=== PATIENT | male | born 1985 | race Caucasian/White ===

== ENCOUNTER 2018-07-31 12:11 | Inpatient (IN) | payer BC ==
[~2018-07-31] VITALS: Ht 185.4 cm; Wt 99.8 kg
--- NOTE | 2018-07-31 12:28 | PHYS DOC ---
Past Medical History Past Medical History: No Pertinent History Additional Past Medical Histor: seasonal allergies Past Surgical History: No Surgical History Alcohol Use: None Drug Use: None Adult General Chief Complaint Chief Complaint: CHEST PAIN HPI HPI Patient is a 33 year old male who presents with left-sided chest pain that lasted approximately 30 minutes. It started approximately an hour ago. Patient was concerned enough to call 911 and was brought in by EMS. He received 324 mg of aspirin by EMS. During EMS transport his chest pain migrated from superior to his nipple down to his left upper quadrant of the abdomen. Patient reports some nausea, no diaphoresis, a mild cough. He denies any PE risk factors. Denies any recent fever. While the pain was in his chest he denies any radiation of the pain. Reports that the pain was at worst a 2 or 3 out of 10, it is currently a 1 or 2 out of 10. Describes the pain as a pressure sensation. There was no worsening pain with exertion nor respirophasic component. Pain was worse with a seated upright position. Review of Systems Review of Systems Constitutional: Denies fever or chills [] Eyes: Denies change in visual acuity, redness, or eye pain [] HENT: Denies nasal congestion or sore throat [] Respiratory: Denies cough or shortness of breath [] Cardiovascular: No additional information not addressed in HPI [] GI: Denies abdominal pain, nausea, vomiting, bloody stools or diarrhea [] : Denies dysuria or hematuria . Reports history of testicular swelling, a hernia, that is reducible. It has had to be reduced almost daily for the past 2 years.[] Musculoskeletal: Denies back pain or joint pain [] Integument: Denies rash or skin lesions [] Neurologic: Denies headache, focal weakness or sensory changes [] Endocrine: Denies polyuria or polydipsia [] All other systems were reviewed and found to be within normal limits, except as documented in this note. Current Medications Current Medications Current Medications Medications (Trade) Dose Ordered Sig/Shiva Start Time Stop Time Status Last Admin Dose Admin Ketorolac Tromethamine (Toradol 15mg Vial) 15 mg 1X ONCE 07/31/18 12:45 07/31/18 12:46 DC 07/31/18 12:41 15 MG Allergies Allergies Allergies Coded Allergies Type Severity Reaction Last Updated Verified penicillin Allergy Severe SOB 05/13/15 Yes Penicillins Allergy Intermediate 11/02/15 Yes Physical Exam Physical Exam Constitutional: Well developed, well nourished, no acute distress, non-toxic appearance. [] HENT: Normocephalic, atraumatic, bilateral external ears normal, oropharynx moist, no oral exudates, nose normal. [] Eyes: PERRLA, EOMI, conjunctiva normal, no discharge. [] Neck: Normal range of motion, no tenderness, supple, no stridor. [] Cardiovascular:Heart rate regular rhythm, no murmur []no chest tenderness. No paradoxical motion with breathing. Lungs & Thorax: Bilateral breath sounds clear to auscultation [] Abdomen: Bowel sounds normal, soft, no tenderness, no masses, no pulsatile masses. [] No rebound, no guarding, no rigidity. : normal male, bilateral descended testes, +freely reduceable hernia. Skin: Warm, dry, no erythema, no rash. [] Back: No tenderness, no CVA tenderness. [] Extremities: No tenderness, no cyanosis, no clubbing, ROM intact, no edema. [] Neurologic: Alert and oriented X 3, normal motor function, normal sensory function, no focal deficits noted. [] Psychologic: Affect normal, judgement normal, mood normal. [] Current Patient Data Vital Signs Vital Signs Date Time Temp Pulse Resp B/P (MAP) Pulse Ox O2 Delivery O2 Flow Rate FiO2 07/31/18 16:06 113 20 139/80 (99) 99 07/31/18 12:11 97.7 Room Air 97.7 Lab Values Laboratory Tests Test 07/31/18 12:20 07/31/18 15:20 White Blood Count 5.7 x10^3/uL (4.0-11.0) Red Blood Count 4.81 x10^6/uL (4.30-5.70) Hemoglobin 15.6 g/dL (13.0-17.5) Hematocrit 44.6 % (39.0-53.0) Mean Corpuscular Volume 93 fL (79-100) Mean Corpuscular Hemoglobin 32 pg (25-35) Mean Corpuscular Hemoglobin Concent 35 g/dL (31-37) Red Cell Distribution Width 12.5 % (11.5-14.5) Platelet Count 194 x10^3/uL (140-400) Neutrophils (%) (Auto) 57 % (31-73) Lymphocytes (%) (Auto) 34 % (24-48) Monocytes (%) (Auto) 7 % (0-9) Eosinophils (%) (Auto) 3 % (0-3) Basophils (%) (Auto) 0 % (0-3) Neutrophils # (Auto) 3.3 x10^3uL (1.8-7.7) Lymphocytes # (Auto) 1.9 x10^3/uL (1.0-4.8) Monocytes # (Auto) 0.4 x10^3/uL (0.0-1.1) Eosinophils # (Auto) 0.1 x10^3/uL (0.0-0.7) Basophils # (Auto) 0.0 x10^3/uL (0.0-0.2) Prothrombin Time 12.9 SEC (11.7-14.0) Prothrombin Time INR 1.0 (0.8-1.1) D-Dimer ([place]) 0.27 ug/mlFEU (0.00-0.50) Sodium Level 141 mmol/L (136-145) Potassium Level 3.9 mmol/L (3.5-5.1) Chloride Level 105 mmol/L (98-107) Carbon Dioxide Level 26 mmol/L (21-32) Anion Gap 10 (6-14) Blood Urea Nitrogen 15 mg/dL (8-26) Creatinine 0.8 mg/dL (0.7-1.3) Estimated GFR (Cockcroft-Gault) 110.0 BUN/Creatinine Ratio 19 (6-20) Glucose Level 107 mg/dL (70-99) H Calcium Level 8.9 mg/dL (8.5-10.1) Magnesium Level 1.8 mg/dL (1.8-2.4) Total Bilirubin 0.4 mg/dL (0.2-1.0) Aspartate Amino Transferase (AST) 17 U/L (15-37) Alanine Aminotransferase (ALT) 30 U/L (16-63) Alkaline Phosphatase 74 U/L (46-116) Troponin I Quantitative < 0.017 ng/mL (0.000-0.055) < 0.017 ng/mL (0.000-0.055) Total Protein 7.5 g/dL (6.4-8.2) Albumin 3.8 g/dL (3.4-5.0) Albumin/Globulin Ratio 1.0 (1.0-1.7) Lipase 85 U/L (73-393) Laboratory Tests 07/31/18 12:20 Laboratory Tests 07/31/18 12:20 EKG EKG EKG shows a normal sinus rhythm at 91 bpm normal axis, normal QTC, no ST elevations, nonspecific ST and T-wave changes that show no acute changes when compared with previous EKG from 2016.[] Radiology/Procedures Radiology/Procedures Chest x-ray showed no acute features Testicular ultrasound showed small hydrocele on the right side however otherwise normal testicular sonogram[] Course & Med Decision Making Course & Med Decision Making Pertinent Labs and Imaging studies reviewed. (See chart for details) ED course: Patient arrived, was placed in bed, and tolerated exam well. Patient is achieved pain relief with the IV ketorolac. Discussion was made with Dr. Barnes at [facility], who agreed to admit. Due to the hernia history, Dr. Cm from surgery was consulted as well. Medical decision making: This does not appear to be an acute coronary syndrome, no evidence of testicular torsion, no evidence of pulmonary embolism, pneumothorax, nor pneumonia.[] Dragon Disclaimer Dragon Disclaimer This electronic medical record was generated, in whole or in part, using a voice recognition dictation system. Departure Departure Impression: Primary Impression: Chest pain Additional Impression: Inguinal hernia Disposition: ADMITTED INPATIENT Admitting Physician: Other Condition: STABLE Problem Qualifiers Primary Impression: Chest pain Chest pain type: unspecified Qualified Codes: R07.9 - Chest pain, unspecified Additional Impression: Inguinal hernia Obstruction and gangrene presence: without obstruction or gangrene Laterality : unspecified laterality Recurrence: recurrent Qualified Codes: K40.91 - Unilateral inguinal hernia, without obstruction or gangrene, recurrent STARR MORRIS DO Jul 31, 2018 12:28
[2018-07-31 12:33] LABS: BASO % 0 % (0-3); EOS # 0.1 x10^3/uL (0.0-0.7); EOS % 3 % (0-3); HEMATOCRIT 44.6 % (39.0-53.0); HEMOGLOBIN 15.6 g/dL (13.0-17.5); LYMPH # 1.9 x10^3/uL (1.0-4.8); LYMPH % 34 % (24-48); MEAN CORPUSCULAR HEMOGLOBIN 32 pg (25-35); MEAN CORPUSCULAR HGB CONC 35 g/dL (31-37); MEAN CORPUSCULAR VOLUME 93 fL (79-100); MONO # 0.4 x10^3/uL (0.0-1.1); MONO % 7 % (0-9); NEUT # 3.3 x10^3uL (1.8-7.7); NEUT % 57 % (31-73); PLATELET COUNT 194 x10^3/uL (140-400); RED BLOOD COUNT 4.81 x10^6/uL (4.30-5.70); RED CELL DISTRIBUTION WIDTH 12.5 % (11.5-14.5); WHITE BLOOD COUNT 5.7 x10^3/uL (4.0-11.0)
[2018-07-31 12:44] LABS: CALCIUM 8.9 mg/dL (8.5-10.1); CREATININE 0.8 mg/dL (0.7-1.3); POTASSIUM 3.9 mmol/L (3.5-5.1)
[2018-07-31 12:45] LABS: PROTHROMBIN TIME PATIENT 12.9 SEC (11.7-14.0)
[2018-07-31] MEDS ORDERED: KETOROLAC 15 MG/ML VIAL. IV ONE (12:45)
--- NOTE | 2018-07-31 12:47 | EKG ---
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
[2018-07-31 12:50] LABS: D-DIMER 0.27 ug/mlFEU (0.00-0.50)
[2018-07-31 12:51] LABS: ALBUMIN 3.8 g/dL (3.4-5.0); MAGNESIUM 1.8 mg/dL (1.8-2.4); TOTAL BILIRUBIN 0.4 mg/dL (0.2-1.0); TOTAL PROTEIN 7.5 g/dL (6.4-8.2)
--- NOTE | 2018-07-31 12:58 | RAD ---
PORTABLE CHEST 1V dated 07/31/2018 12:35 PM. Comparison: None. Clinical Indication: LEFT SIDED CHEST PAIN X THIS MORNING. Findings: Single upright portable exam performed. Heart and mediastinal contours are within normal limits. Lungs are clear without focal consolidation. Vascular interstitium within normal limits. No pleural effusion or pneumothorax. Impression: Negative portable chest. Electronically signed by: Clark Gallegos MD (07/31/2018 12:55 PM) [id number]
--- NOTE | 2018-07-31 14:14 | RAD ---
Testicular duplex sonogram Clinical indications: Scrotal pain. History of testicular cancer. FINDINGS: Duplex sonography of the scrotum and both testicles was performed including grayscale evaluation and color flow and waveform spectral analysis. The longitudinal AP and transverse dimensions of the right testicle are 5.5 cm and 2.7 cm and 2.6 cm respectively. The longitudinal and AP and transverse dimensions of the left testicle are 5.0 cm and 2.7 cm and 2.9 cm respectively. Both testicles are homogeneous without mass. Symmetric color Doppler flow is seen within the testicles and therefore no testicular torsion is evident. Small hydrocele is on the right side. The epididymis on both sides is normal. The patient indicated inguinal hernia on the right side but no obvious hernia is seen with Valsalva maneuvers. This may further evaluated with CT imaging of the pelvis if clinically needed. IMPRESSION: Normal testicular sonogram. Small hydrocele on the right side. Electronically signed by: Jayme Escobar MD (07/31/2018 2:11 PM) [facility]
--- NOTE | 2018-07-31 14:32 | PDOC2 ---
CONSULT Date of Consult Date of Consult DATE: 07/31/18 TIME: 14:28 History of Present Illness Reason for Visit: The patient is a 33 year old male who presents with his Sister and Mother to the ER due to chest pain. In addition he has had a known sizeable left inguinal hernia for nearly 2 years. He states it has enlarged and often needs to be manually reduced. Previously it had not been symptomatic, however over the last day he notes worsening pain. Past Medical History Past Medical History denies Past Surgical History Past Surgical History denies Social History No Current Medications Current Medications Current Medications Ketorolac Tromethamine (Toradol 15mg Vial) 15 mg 1X ONCE IV Last administered on 07/31/18at 12:41; Start 07/31/18 at 12:45; Stop 07/31/18 at 12:46; Status DC Allergies Allergies: Coded Allergies: penicillin (Verified Allergy, Severe, SOB, 05/13/15) Penicillins (Verified Allergy, Intermediate, 11/02/15) ROS PSYCHOLOGICAL ROS: No: Anxiety, Behavioral Disorder, Concentration difficultie , Decreased libido, Depression, Disorientation, Hallucinations, Hostility, Irritablity, Memory difficulties, Mood Swings, Obsessive thoughts, Physical abuse, Sexual abuse, Sleep disturbances, Suicidal ideation, Other Eyes: No Blurry vision, No Decreased vision, No Double vision, No Dry eyes, No Excessive tearing, No Eye Pain, No Itchy Eyes, No Loss of vision, No Photophobia , No Scotomata, No Uses contacts, No Uses glasses, No Other ALLERGY AND IMMUNOLOGY: No: Hives, Insect Bite Sensitivity, Itchy/Watery Eyes, Nasal Congestion, Post Nasal Drip, Seasonal Allergies, Other Breast: No New/Changing Breast Lumps, No Nipple changes, No Nipple discharge, No Other Respiratory: No: Cough, Hemoptysis, Orthopnea, Pleuritic Pain, Shortness of breath, SOB with excertion, Sputum Changes, Stridor, Tachypnea, Wheezing, Other Cardiovascular: yes Chest Pain Genitourinary: No Dysuria, No Frequency, No Incontinence, No Hematuria, No Retention, No Discharge, No Urgency, No Pain, No Flank Pain, No Other, No , No , No , No , No , No , No Musculoskeletal: No Gait Disturbance, No Joint Pain, No Joint Stiffness, No Joint Swelling, No Muscle Pain, No Muscular Weakness, No Pain In:, No Swelling In:, No Other Neurological: No Behavorial Changes, No Bowel/Bladder ControlChng, No Confusion , No Dizziness, No Gait Disturbance, No Headaches, No Impaired Coord/balance, No Memory Loss, No Numbness/Tingling, No Seizures, No Speech Problems, No Tremors, No Visual Changes, No Weakness, No Other Skin: No Dry Skin, No Eczema, No Hair Changes, No Lumps, No Mole Changes, No Mottling, No Nail Changes, No Pruritus, No Rash, No Skin Lesion Changes, No Other, No Acne Physical Exam General: Alert, Oriented X3, Cooperative HEENT: Atraumatic Lungs: Clear to auscultation Heart: Regular rate Abdomen: Soft, No tenderness, Other (mod to large reducible left inguinal hernia present) Extremities: No clubbing Skin: No rashes, No breakdown Neuro: Normal speech, Strength at 5/5 X4 ext Psych/Mental Status: Mental status NL MUSCULOSKELETAL: No joint tenderness, No deformity Vitals VITALS Vital Signs Date Time Temp Pulse Resp B/P (MAP) Pulse Ox O2 Delivery O2 Flow Rate FiO2 07/31/18 13:55 82 18 129/84 (99) 98 07/31/18 12:11 97.7 Room Air 97.7 Labs Labs Laboratory Tests Test 07/31/18 12:20 White Blood Count 5.7 x10^3/uL (4.0-11.0) Red Blood Count 4.81 x10^6/uL (4.30-5.70) Hemoglobin 15.6 g/dL (13.0-17.5) Hematocrit 44.6 % (39.0-53.0) Mean Corpuscular Volume 93 fL (79-100) Mean Corpuscular Hemoglobin 32 pg (25-35) Mean Corpuscular Hemoglobin Concent 35 g/dL (31-37) Red Cell Distribution Width 12.5 % (11.5-14.5) Platelet Count 194 x10^3/uL (140-400) Neutrophils (%) (Auto) 57 % (31-73) Lymphocytes (%) (Auto) 34 % (24-48) Monocytes (%) (Auto) 7 % (0-9) Eosinophils (%) (Auto) 3 % (0-3) Basophils (%) (Auto) 0 % (0-3) Neutrophils # (Auto) 3.3 x10^3uL (1.8-7.7) Lymphocytes # (Auto) 1.9 x10^3/uL (1.0-4.8) Monocytes # (Auto) 0.4 x10^3/uL (0.0-1.1) Eosinophils # (Auto) 0.1 x10^3/uL (0.0-0.7) Basophils # (Auto) 0.0 x10^3/uL (0.0-0.2) Prothrombin Time 12.9 SEC (11.7-14.0) Prothromb Time International Ratio 1.0 (0.8-1.1) D-Dimer ([place]) 0.27 ug/mlFEU (0.00-0.50) Sodium Level 141 mmol/L (136-145) Potassium Level 3.9 mmol/L (3.5-5.1) Chloride Level 105 mmol/L (98-107) Carbon Dioxide Level 26 mmol/L (21-32) Anion Gap 10 (6-14) Blood Urea Nitrogen 15 mg/dL (8-26) Creatinine 0.8 mg/dL (0.7-1.3) Estimated GFR (Cockcroft-Gault) 110.0 BUN/Creatinine Ratio 19 (6-20) Glucose Level 107 mg/dL (70-99) Calcium Level 8.9 mg/dL (8.5-10.1) Magnesium Level 1.8 mg/dL (1.8-2.4) Total Bilirubin 0.4 mg/dL (0.2-1.0) Aspartate Amino Transf (AST/SGOT) 17 U/L (15-37) Alanine Aminotransferase (ALT/SGPT) 30 U/L (16-63) Alkaline Phosphatase 74 U/L (46-116) Troponin I Quantitative < 0.017 ng/mL (0.000-0.055) Total Protein 7.5 g/dL (6.4-8.2) Albumin 3.8 g/dL (3.4-5.0) Albumin/Globulin Ratio 1.0 (1.0-1.7) Lipase 85 U/L (73-393) Laboratory Tests Test 07/31/18 12:20 White Blood Count 5.7 x10^3/uL (4.0-11.0) Red Blood Count 4.81 x10^6/uL (4.30-5.70) Hemoglobin 15.6 g/dL (13.0-17.5) Hematocrit 44.6 % (39.0-53.0) Mean Corpuscular Volume 93 fL (79-100) Mean Corpuscular Hemoglobin 32 pg (25-35) Mean Corpuscular Hemoglobin Concent 35 g/dL (31-37) Red Cell Distribution Width 12.5 % (11.5-14.5) Platelet Count 194 x10^3/uL (140-400) Neutrophils (%) (Auto) 57 % (31-73) Lymphocytes (%) (Auto) 34 % (24-48) Monocytes (%) (Auto) 7 % (0-9) Eosinophils (%) (Auto) 3 % (0-3) Basophils (%) (Auto) 0 % (0-3) Neutrophils # (Auto) 3.3 x10^3uL (1.8-7.7) Lymphocytes # (Auto) 1.9 x10^3/uL (1.0-4.8) Monocytes # (Auto) 0.4 x10^3/uL (0.0-1.1) Eosinophils # (Auto) 0.1 x10^3/uL (0.0-0.7) Basophils # (Auto) 0.0 x10^3/uL (0.0-0.2) Prothrombin Time 12.9 SEC (11.7-14.0) Prothromb Time International Ratio 1.0 (0.8-1.1) D-Dimer ([place]) 0.27 ug/mlFEU (0.00-0.50) Sodium Level 141 mmol/L (136-145) Potassium Level 3.9 mmol/L (3.5-5.1) Chloride Level 105 mmol/L (98-107) Carbon Dioxide Level 26 mmol/L (21-32) Anion Gap 10 (6-14) Blood Urea Nitrogen 15 mg/dL (8-26) Creatinine 0.8 mg/dL (0.7-1.3) Estimated GFR (Cockcroft-Gault) 110.0 BUN/Creatinine Ratio 19 (6-20) Glucose Level 107 mg/dL (70-99) Calcium Level 8.9 mg/dL (8.5-10.1) Magnesium Level 1.8 mg/dL (1.8-2.4) Total Bilirubin 0.4 mg/dL (0.2-1.0) Aspartate Amino Transf (AST/SGOT) 17 U/L (15-37) Alanine Aminotransferase (ALT/SGPT) 30 U/L (16-63) Alkaline Phosphatase 74 U/L (46-116) Troponin I Quantitative < 0.017 ng/mL (0.000-0.055) Total Protein 7.5 g/dL (6.4-8.2) Albumin 3.8 g/dL (3.4-5.0) Albumin/Globulin Ratio 1.0 (1.0-1.7) Lipase 85 U/L (73-393) Assessment/Plan Assessment/Plan 33 year old male with left inguinal hernia, chest pain. Dr Barnes with cardiology has been notified regarding the eval for chest pain, and he will be seeing the patient soon. Pending the cardiac evaluation, surgical repair of the hernia could be as early as tomorrow if cleared. Thanks for the consult!! LARRY WANG MD Jul 31, 2018 14:32
[2018-07-31] MEDS ORDERED: ONDANSETRON PF 4 MG/2 ML VIAL. IV PRN (16:15)
[2018-07-31] MEDS ORDERED: CETIRIZINE HCL 10 MG TABLET. PO PRN (18:15)
[2018-07-31 19:00] VITALS: BP 126/83
--- NOTE | 2018-07-31 19:46 | PDOC1 ---
History and Physical Date of Admission Date of Admission DATE: 07/31/18 TIME: 19:33 Identification/Chief Complaint Chief Complaint Groin pain and chest pain History of Present Illness History of Present Illness This patient is a 33-year-old gentleman that has no history of heart problems, no history of diabetes, no history of asthma, no history of hypertension. He is on no medications at home except for some antihistamines for allergy problems. The patient has been having problems with a left inguinal hernia for some time and this has been getting to the point that someone else has to reduce it once or twice a day. Today the patient was having problems while in the shower and developed some chest pains that initially he stated was very severe starting from the left nipple going downwards into the abdomen, this caused him to call 911 and he was brought to the emergency room. After he arrived in the ER the pain had gradually subsided to a level of 1 or 2 out of 10. The patient's EKG showed no acute ST abnormalities and the first 2 sets of enzymes were negative. After I arrived to see the patient in the emergency room he stated that in reality the patient had gone all the way down into his groin and that's where he felt that it was very severe but he was concerned with his mother that is a nurse and his sister that is a nurse when he told them that he'd had chest pains. After the enzymes were found to be negative the ER physician talked to me and I discussed the case with him. The surgeons were called to see the patient and they came and evaluated the patient in the emergency room. He was decided to admit the patient for further treatment. Past Medical History ENT: Allergic Rhinitis Social History Smoke: No Current Problem List Problem List Problems Medical Problems: (1) Chest pain Status: Acute (2) Inguinal hernia Status: Acute Current Medications Current Medications Current Medications Ketorolac Tromethamine (Toradol 15mg Vial) 15 mg 1X ONCE IV Last administered on 07/31/18at 12:41; Start 07/31/18 at 12:45; Stop 07/31/18 at 12:46; Status DC Ondansetron HCl (Zofran) 4 mg PRN Q8HRS PRN IV NAUSEA/VOMITING; Start 07/31/18 at 16:15; Stop 08/01/18 at 16:14 Prochlorperazine Edisylate (Compazine) 5 mg PACU PRN PRN IV NAUSEA, MRX1; Start 08/01/18 at 07:00; Stop 08/02/18 at 06:59 Hydromorphone HCl (Dilaudid) 0.5 mg PRN Q10MIN PRN IV SEV PAIN, Second choice; Start 08/01/18 at 07:00; Stop 08/02/18 at 06:59 Lidocaine HCl (Xylocaine-Mpf 1% 2ml Vial) 2 ml PRN 1X PRN ID IV START; Start 08/01/18 at 07:00; Stop 08/02/18 at 06:59 Ringer's Solution 1,000 ml @ 30 mls/hr Q24H IV ; Start 08/01/18 at 07:00; Stop 08/01/18 at 18:59 Morphine Sulfate (Morphine Sulfate) 1 mg PRN Q10MIN PRN IV SEVERE PAIN; Start 08/01/18 at 07:00; Stop 08/02/18 at 06:59 Fentanyl Citrate (Fentanyl 2ml Vial) 50 mcg PRN Q5MIN PRN IV MODERATE TO SEVERE PAIN; Start 08/01/18 at 07:00; Stop 08/02/18 at 06:59 Fentanyl Citrate (Fentanyl 2ml Vial) 25 mcg PRN Q5MIN PRN IV MILD PAIN; Start 08/01/18 at 07:00; Stop 08/02/18 at 06:59 Ondansetron HCl (Zofran) 4 mg PRN Q6HRS PRN IV NAUSEA/VOMITING; Start 08/01/18 at 07:00; Stop 08/02/18 at 06:59 Cetirizine HCl (ZyrTEC) 10 mg PRN DAILY PRN PO ALLERGIES; Start 07/31/18 at 18: 15 Diphenhydramine HCl (Benadryl) 25 mg PRN Q8HRS PRN PO ITCHING; Start 07/31/18 at 18:15 Influenza Virus Vaccine (Afluria Trivalent [id number] Syringe) 0.5 ml ONCE ONCE VAX IM ; Start 08/02/18 at 09:00; Stop 08/02/18 at 09:01 Allergies Allergies: Coded Allergies: penicillin (Verified Allergy, Severe, SOB, 05/13/15) Penicillins (Verified Allergy, Intermediate, 11/02/15) Physical Exam General: Alert, Oriented X3, Cooperative HEENT: Atraumatic, PERRLA Lungs: Clear to auscultation Heart: RRR, no murmurs Abdomen: Normal bowel sounds, Soft, Other (left inguinal hernia present) Extremities: No edema, Normal pulses Vitals Vitals Vital Signs Date Time Temp Pulse Resp B/P (MAP) Pulse Ox O2 Delivery O2 Flow Rate FiO2 07/31/18 16:06 113 20 139/80 (99) 99 07/31/18 12:11 97.7 Room Air 97.7 Labs Labs Laboratory Tests Test 07/31/18 12:20 07/31/18 15:20 White Blood Count 5.7 x10^3/uL (4.0-11.0) Red Blood Count 4.81 x10^6/uL (4.30-5.70) Hemoglobin 15.6 g/dL (13.0-17.5) Hematocrit 44.6 % (39.0-53.0) Mean Corpuscular Volume 93 fL (79-100) Mean Corpuscular Hemoglobin 32 pg (25-35) Mean Corpuscular Hemoglobin Concent 35 g/dL (31-37) Red Cell Distribution Width 12.5 % (11.5-14.5) Platelet Count 194 x10^3/uL (140-400) Neutrophils (%) (Auto) 57 % (31-73) Lymphocytes (%) (Auto) 34 % (24-48) Monocytes (%) (Auto) 7 % (0-9) Eosinophils (%) (Auto) 3 % (0-3) Basophils (%) (Auto) 0 % (0-3) Neutrophils # (Auto) 3.3 x10^3uL (1.8-7.7) Lymphocytes # (Auto) 1.9 x10^3/uL (1.0-4.8) Monocytes # (Auto) 0.4 x10^3/uL (0.0-1.1) Eosinophils # (Auto) 0.1 x10^3/uL (0.0-0.7) Basophils # (Auto) 0.0 x10^3/uL (0.0-0.2) Prothrombin Time 12.9 SEC (11.7-14.0) Prothromb Time International Ratio 1.0 (0.8-1.1) D-Dimer (Suyapa) 0.27 ug/mlFEU (0.00-0.50) Sodium Level 141 mmol/L (136-145) Potassium Level 3.9 mmol/L (3.5-5.1) Chloride Level 105 mmol/L (98-107) Carbon Dioxide Level 26 mmol/L (21-32) Anion Gap 10 (6-14) Blood Urea Nitrogen 15 mg/dL (8-26) Creatinine 0.8 mg/dL (0.7-1.3) Estimated GFR (Cockcroft-Gault) 110.0 BUN/Creatinine Ratio 19 (6-20) Glucose Level 107 mg/dL (70-99) Calcium Level 8.9 mg/dL (8.5-10.1) Magnesium Level 1.8 mg/dL (1.8-2.4) Total Bilirubin 0.4 mg/dL (0.2-1.0) Aspartate Amino Transf (AST/SGOT) 17 U/L (15-37) Alanine Aminotransferase (ALT/SGPT) 30 U/L (16-63) Alkaline Phosphatase 74 U/L (46-116) Troponin I Quantitative < 0.017 ng/mL (0.000-0.055) < 0.017 ng/mL (0.000-0.055) Total Protein 7.5 g/dL (6.4-8.2) Albumin 3.8 g/dL (3.4-5.0) Albumin/Globulin Ratio 1.0 (1.0-1.7) Lipase 85 U/L (73-393) Laboratory Tests Test 07/31/18 12:20 07/31/18 15:20 White Blood Count 5.7 x10^3/uL (4.0-11.0) Red Blood Count 4.81 x10^6/uL (4.30-5.70) Hemoglobin 15.6 g/dL (13.0-17.5) Hematocrit 44.6 % (39.0-53.0) Mean Corpuscular Volume 93 fL (79-100) Mean Corpuscular Hemoglobin 32 pg (25-35) Mean Corpuscular Hemoglobin Concent 35 g/dL (31-37) Red Cell Distribution Width 12.5 % (11.5-14.5) Platelet Count 194 x10^3/uL (140-400) Neutrophils (%) (Auto) 57 % (31-73) Lymphocytes (%) (Auto) 34 % (24-48) Monocytes (%) (Auto) 7 % (0-9) Eosinophils (%) (Auto) 3 % (0-3) Basophils (%) (Auto) 0 % (0-3) Neutrophils # (Auto) 3.3 x10^3uL (1.8-7.7) Lymphocytes # (Auto) 1.9 x10^3/uL (1.0-4.8) Monocytes # (Auto) 0.4 x10^3/uL (0.0-1.1) Eosinophils # (Auto) 0.1 x10^3/uL (0.0-0.7) Basophils # (Auto) 0.0 x10^3/uL (0.0-0.2) Prothrombin Time 12.9 SEC (11.7-14.0) Prothromb Time International Ratio 1.0 (0.8-1.1) D-Dimer (Suyapa) 0.27 ug/mlFEU (0.00-0.50) Sodium Level 141 mmol/L (136-145) Potassium Level 3.9 mmol/L (3.5-5.1) Chloride Level 105 mmol/L (98-107) Carbon Dioxide Level 26 mmol/L (21-32) Anion Gap 10 (6-14) Blood Urea Nitrogen 15 mg/dL (8-26) Creatinine 0.8 mg/dL (0.7-1.3) Estimated GFR (Cockcroft-Gault) 110.0 BUN/Creatinine Ratio 19 (6-20) Glucose Level 107 mg/dL (70-99) Calcium Level 8.9 mg/dL (8.5-10.1) Magnesium Level 1.8 mg/dL (1.8-2.4) Total Bilirubin 0.4 mg/dL (0.2-1.0) Aspartate Amino Transf (AST/SGOT) 17 U/L (15-37) Alanine Aminotransferase (ALT/SGPT) 30 U/L (16-63) Alkaline Phosphatase 74 U/L (46-116) Troponin I Quantitative < 0.017 ng/mL (0.000-0.055) < 0.017 ng/mL (0.000-0.055) Total Protein 7.5 g/dL (6.4-8.2) Albumin 3.8 g/dL (3.4-5.0) Albumin/Globulin Ratio 1.0 (1.0-1.7) Lipase 85 U/L (73-393) VTE Prophylaxis Ordered VTE Prophylaxis Devices: No VTE Pharmacological Prophylaxi: No Assessment/Plan Assessment/Plan This patient comes in with chest pain and after checking EKGs and 2 sets of enzymes I do not feel that this pain is angina or cardiac. He has a left inguinal hernia that has been giving him trouble and requires being reduced twice a day by other people. I'm concerned that he is going to progress rather quickly to having a strangulated hernia therefore I would recommend to proceed with the hernia repair. From a cardiac standpoint the patient is cleared for surgery. ROGERS CONNER MD Jul 31, 2018 19:46
[2018-07-31] MEDS: diphenhydrAMINE HCL 25 MG CAPSULE PO PRN (20:36)
[2018-07-31 23:00] VITALS: BP 105/65
[2018-08-01] VITALS (12 sets, daily range): BP systolic 99–137; BP diastolic 64–84
[2018-08-01] MEDS ORDERED: fentaNYL PF VIAL 100 MCG/2 ML VIAL IV PRN ×2 (05:00→07:00)
[2018-08-01] MEDS ORDERED: CLINDAMYCIN 900MG PREMIX 50 ML IV PRN (06:00)
[2018-08-01] MEDS ORDERED: PROCHLORPERAZINE 10 MG/2 ML VIAL. IV PRN (07:00)
[2018-08-01] MEDS ORDERED: HYDROmorphone 2 MG/ML VIAL IV PRN (07:00)
[2018-08-01] MEDS ORDERED: IV RINGERS,LACTATED 1000ML 1,000 ML IV SCH (07:00)
[2018-08-01] MEDS ORDERED: MORPHINE SULFATE 2 MG/ML VIAL. IV PRN (07:00)
[2018-08-01] MEDS ORDERED: ONDANSETRON PF 4 MG/2 ML VIAL. IV PRN (07:00)
[2018-08-01] MEDS ORDERED: LIDOCAINE 1% PF 2 ML VIAL. ID PRN (07:00)
[2018-08-01] MEDS ORDERED: BUPIVAC MPF-EPI 0.5%-1:200000 30 ML VIAL. ONE (08:02)
[2018-08-01] MEDS ORDERED: BACITRACIN 50,000 UNIT VIAL. IRR ONE (08:03)
[2018-08-01] MEDS ORDERED: PROPOFOL 20 ML IV ONE (09:00)
[2018-08-01] MEDS ORDERED: DEXAMETHASONE SOD PHOS 20 MG/5 ML VIAL. ONE (09:00)
[2018-08-01] MEDS ORDERED: ONDANSETRON PF 4 MG/2 ML VIAL. ONE (09:00)
[2018-08-01] MEDS ORDERED: ROCURONIUM 50 MG/5 ML VIAL. ONE (09:00)
[2018-08-01] MEDS ORDERED: fentaNYL PF VIAL 100 MCG/2 ML VIAL ONE ×3 (09:01→11:50)
[2018-08-01] MEDS ORDERED: MIDAZOLAM HCL/PF 2 MG/2 ML VIAL. ONE ×2 (09:01→09:55)
[2018-08-01] MEDS ORDERED: MIDAZOLAM HCL/PF 2 MG/2 ML VIAL. IV ONE (10:15)
[2018-08-01] MEDS ORDERED: NEOSTIGMINE METHYLSULFATE 5 MG/5 ML SYRINGE. ONE (10:42)
[2018-08-01] MEDS ORDERED: GLYCOPYRROLATE 1 MG/5 ML VIAL. ONE (10:43)
[2018-08-01] MEDS ORDERED: KETOROLAC 30 MG/ML INJ FOR OR. INJ ONE (11:15)
[2018-08-01] MEDS ORDERED: SEVOFLURANE 61 TO 120 MINUTES. IH ONE (11:15)
--- NOTE | 2018-08-01 11:36 | PDOC4 ---
Operative Note Operative Note Operative Note: Preoperative Diagnosis: Left inguinal hernia Postoperative Diagnosis: Same Procedure: Left inguinal hernia repair with mesh Surgeon: Toi Anesthesia: Gen. EBL: 20 mL Specimen: Hernia sac to pathology Drains: None Complications: None Indication: The patient is a 33-year-old male who was admitted with a sizable left inguinal hernia. He requests operative repair. The details and risks of surgery were discussed with the patient. The risks include bleeding, infection, recurrence, pain, anesthetic risk, potential need for additional surgery or procedure. He understands and would like to proceed. Description: The patient was taken to the operating room and placed supine on the operating table. Gen. anesthesia was performed. The left groin was shaved and prepped with ChloraPrep and draped in a standard surgical manner. An incision was made in the skin lines of the left groin with a scalpel. Cautery dissection was carried down to the external oblique aponeurosis. The aponeurosis was opened down to the external ring. The contents of the inguinal canal were digitally mobilized and encircled with a Ada drain. The patient had a large indirect hernia sac present. The hernia sac was mobilized from the surrounding tissues. The vas deferens and other cord structures were identified and preserved. The hernia sac was then mobilized down to its base. The hernia sac was ligated high with 2-0 Vicryl and divided. The redundant excised hernia sac was sent to pathology. The sac stump was then inverted and the defect filled with a large Phasix mesh plug. The entire inguinal floor was then reinforced with a 3 x 6" Prolene mesh patch. The mesh was trimmed and tailored to provide full coverage of the inguinal floor and a slit was made to accommodate cord structures. The mesh was sutured into position with interrupted 2-0 Vicryl. The external oblique was closed over the mesh with 2-0 Vicryl. The subcutaneous tissue was approximated with 3-0 Vicryl. The skin was closed with 4-0 Monocryl and incision was infiltrated with half percent Marcaine with epinephrine. Steri-Strips and a sterile dressing were applied. The patient tolerated the procedure well and was sent to the recovery room in stable condition. At the end of the case all counts were correct. LARRY WANG MD Aug 01, 2018 11:36
[2018-08-01] MEDS ORDERED: PROCHLORPERAZINE 10 MG/2 ML VIAL. ONE (11:42)
[2018-08-01] MEDS ORDERED: oxyCODONE/APAP 5/325 1 TAB TABLET PO PRN (11:45)
[2018-08-01] MEDS: fentaNYL PF VIAL 100 MCG/2 ML VIAL IV PRN ×2 (11:53→12:11)
[2018-08-01] MEDS: oxyCODONE/APAP 5/325 1 TAB TABLET PO PRN ×2 (13:06→20:35)
--- NOTE | 2018-08-01 15:40 | PDOC ---
PROGRESS NOTES Subjective Subjective patient was seen post operatively he had no cardiac concerns at this time and has had no episodes of chest pain since he came to the hospital he said that he felt he tolerated surgery well Objective Objective Vital Signs Date Time Temp Pulse Resp B/P (MAP) Pulse Ox O2 Delivery O2 Flow Rate FiO2 08/01/18 15:00 119 117/81 (93) 95 Nasal Cannula 2.0 08/01/18 13:06 17 08/01/18 12:35 98.1 98.1 Intake and Output 08/01/18 07:00 Output Total 700 ml Balance -700 ml Output Urine Total 700 ml # Voids 2 Physical Exam Heart: Regular rate, Normal S1, Normal S2, No murmurs Extremities: No clubbing, No cyanosis, No edema, Normal pulses General: Alert, Oriented X3, Cooperative, No acute distress Lungs: Clear to auscultation, Normal air movement Assessment Assessment Problems Medical Problems: (1) Chest pain Status: Acute (2) Inguinal hernia Status: Acute Plan Plan of Care no cardiac concerns at thist michelle, patient seen post-op will monitor patient during his care to discharge for any chest pain, shortness of breath or associated cardiac symptoms Comment Review of Relevant I have reviewed the following items jeramy (where applicable) has been applied. Labs Laboratory Tests Test 07/31/18 12:20 07/31/18 15:20 White Blood Count 5.7 x10^3/uL (4.0-11.0) Red Blood Count 4.81 x10^6/uL (4.30-5.70) Hemoglobin 15.6 g/dL (13.0-17.5) Hematocrit 44.6 % (39.0-53.0) Mean Corpuscular Volume 93 fL (79-100) Mean Corpuscular Hemoglobin 32 pg (25-35) Mean Corpuscular Hemoglobin Concent 35 g/dL (31-37) Red Cell Distribution Width 12.5 % (11.5-14.5) Platelet Count 194 x10^3/uL (140-400) Neutrophils (%) (Auto) 57 % (31-73) Lymphocytes (%) (Auto) 34 % (24-48) Monocytes (%) (Auto) 7 % (0-9) Eosinophils (%) (Auto) 3 % (0-3) Basophils (%) (Auto) 0 % (0-3) Neutrophils # (Auto) 3.3 x10^3uL (1.8-7.7) Lymphocytes # (Auto) 1.9 x10^3/uL (1.0-4.8) Monocytes # (Auto) 0.4 x10^3/uL (0.0-1.1) Eosinophils # (Auto) 0.1 x10^3/uL (0.0-0.7) Basophils # (Auto) 0.0 x10^3/uL (0.0-0.2) Prothrombin Time 12.9 SEC (11.7-14.0) Prothromb Time International Ratio 1.0 (0.8-1.1) D-Dimer (Suyapa) 0.27 ug/mlFEU (0.00-0.50) Sodium Level 141 mmol/L (136-145) Potassium Level 3.9 mmol/L (3.5-5.1) Chloride Level 105 mmol/L (98-107) Carbon Dioxide Level 26 mmol/L (21-32) Anion Gap 10 (6-14) Blood Urea Nitrogen 15 mg/dL (8-26) Creatinine 0.8 mg/dL (0.7-1.3) Estimated GFR (Cockcroft-Gault) 110.0 BUN/Creatinine Ratio 19 (6-20) Glucose Level 107 mg/dL (70-99) Calcium Level 8.9 mg/dL (8.5-10.1) Magnesium Level 1.8 mg/dL (1.8-2.4) Total Bilirubin 0.4 mg/dL (0.2-1.0) Aspartate Amino Transf (AST/SGOT) 17 U/L (15-37) Alanine Aminotransferase (ALT/SGPT) 30 U/L (16-63) Alkaline Phosphatase 74 U/L (46-116) Troponin I Quantitative < 0.017 ng/mL (0.000-0.055) < 0.017 ng/mL (0.000-0.055) Total Protein 7.5 g/dL (6.4-8.2) Albumin 3.8 g/dL (3.4-5.0) Albumin/Globulin Ratio 1.0 (1.0-1.7) Lipase 85 U/L (73-393) Medications Current Medications Ketorolac Tromethamine (Toradol 15mg Vial) 15 mg 1X ONCE IV Last administered on 07/31/18at 12:41; Start 07/31/18 at 12:45; Stop 07/31/18 at 12:46; Status DC Ondansetron HCl (Zofran) 4 mg PRN Q8HRS PRN IV NAUSEA/VOMITING; Start 07/31/18 at 16:15; Stop 08/01/18 at 16:14 Prochlorperazine Edisylate (Compazine) 5 mg PACU PRN PRN IV NAUSEA, MRX1 Last administered on 08/01/18at 11:45; Start 08/01/18 at 07:00; Stop 08/02/18 at 06:59 Hydromorphone HCl (Dilaudid) 0.5 mg PRN Q10MIN PRN IV SEV PAIN, Second choice; Start 08/01/18 at 07:00; Stop 08/02/18 at 06:59 Lidocaine HCl (Xylocaine-Mpf 1% 2ml Vial) 2 ml PRN 1X PRN ID IV START; Start 08/01/18 at 07:00; Stop 08/02/18 at 06:59 Ringer's Solution 1,000 ml @ 30 mls/hr Q24H IV Last administered on 08/01/18at 08:28; Start 08/01/18 at 07:00; Stop 08/01/18 at 18:59 Morphine Sulfate (Morphine Sulfate) 1 mg PRN Q10MIN PRN IV SEVERE PAIN; Start 08/01/18 at 07:00; Stop 08/02/18 at 06:59 Fentanyl Citrate (Fentanyl 2ml Vial) 50 mcg PRN Q5MIN PRN IV MODERATE TO SEVERE PAIN Last administered on 08/01/18at 12:11; Start 08/01/18 at 07:00; Stop 08/02/18 at 06:59 Fentanyl Citrate (Fentanyl 2ml Vial) 25 mcg PRN Q5MIN PRN IV MILD PAIN; Start 08/01/18 at 07:00; Stop 08/02/18 at 06:59 Ondansetron HCl (Zofran) 4 mg PRN Q6HRS PRN IV NAUSEA/VOMITING Last administered on 08/01/18at 13:05; Start 08/01/18 at 07:00; Stop 08/02/18 at 06:59 Cetirizine HCl (ZyrTEC) 10 mg PRN DAILY PRN PO ALLERGIES; Start 07/31/18 at 18: 15 Diphenhydramine HCl (Benadryl) 25 mg PRN Q8HRS PRN PO ITCHING Last administered on 07/31/18at 20:36; Start 07/31/18 at 18:15 Influenza Virus Vaccine (Afluria Trivalent [id number] Syringe) 0.5 ml ONCE ONCE VAX IM ; Start 08/02/18 at 09:00; Stop 08/02/18 at 09:01 Clindamycin Phosphate 50 ml @ 100 mls/hr 1X PREOP PRN IV PRIOR TO PROCEDURE Last administered on 08/01/18at 10:01; Start 08/01/18 at 06:00; Stop 08/01/18 at 18:00 Fentanyl Citrate (Fentanyl 2ml Vial) 50 mcg PRN Q4HRS PRN IV PAIN Last administered on 08/01/18at 05:04; Start 08/01/18 at 05:00 Bupivacaine HCl/ Epinephrine Bitart (Sensorcain-Mpf Epi 0.5%-1:[id number]) 30 ml STK -MED ONCE .ROUTE Last administered on 08/01/18at 10:40; Start 08/01/18 at 08:02 ; Stop 08/01/18 at 08:03; Status DC Bacitracin (Bacitracin) 50,000 unit STK-MED ONCE IRR Last administered on at 10:20; Start 08/01/18 at 08:03; Stop 08/01/18 at 08:04; Status DC Propofol 20 ml @ As Directed STK-MED ONCE IV ; Start 08/01/18 at 09:00; Stop at 09:01; Status DC Dexamethasone Sodium Phosphate (Decadron) 20 mg STK-MED ONCE .ROUTE ; Start 08/01/18 at 09:00; Stop 08/01/18 at 09:01; Status DC Ondansetron HCl (Zofran) 4 mg STK-MED ONCE .ROUTE ; Start 08/01/18 at 09:00; Stop 08/01/18 at 09:01; Status DC Rocuronium Cloudcroft (Zemuron) 50 mg STK-MED ONCE .ROUTE ; Start 08/01/18 at 09:00 ; Stop 08/01/18 at 09:01; Status DC Fentanyl Citrate (Fentanyl 2ml Vial) 100 mcg STK-MED ONCE .ROUTE ; Start at 09:01; Stop 08/01/18 at 09:02; Status DC Midazolam HCl (Versed) 2 mg STK-MED ONCE .ROUTE ; Start 08/01/18 at 09:01; Stop 08/01/18 at 09:02; Status DC Midazolam HCl (Versed) 2 mg STK-MED ONCE .ROUTE ; Start 08/01/18 at 09:55; Stop 08/01/18 at 09:56; Status DC Midazolam HCl (Versed) 2 mg 1X ONCE IV Last administered on 08/01/18at 10:03; Start 08/01/18 at 10:15; Stop 08/01/18 at 10:16; Status DC Fentanyl Citrate (Fentanyl 2ml Vial) 100 mcg STK-MED ONCE .ROUTE ; Start at 10:25; Stop 08/01/18 at 10:26; Status DC Neostigmine Methylsulfate (Neostigmine Methylsulfate) 5 mg STK-MED ONCE .ROUTE ; Start 08/01/18 at 10:42; Stop 08/01/18 at 10:43; Status DC Glycopyrrolate (Robinul) 1 mg STK-MED ONCE .ROUTE ; Start 08/01/18 at 10:43; Stop 08/01/18 at 10:44; Status DC Ketorolac Tromethamine (Toradol For Or Only) 30 mg STK-MED ONCE INJ ; Start 08/01/18 at 11:15; Stop 08/01/18 at 11:16; Status DC Sevoflurane (Ultane) 60 ml STK-MED ONCE IH ; Start 08/01/18 at 11:15; Stop 08/01 at 11:16; Status DC Oxycodone/ Acetaminophen (Percocet 5/325) 1 tab PRN Q4HRS PRN PO MILD PAIN Last administered on 08/01/18at 13:06; Start 08/01/18 at 11:45 Oxycodone/ Acetaminophen (Percocet 5/325) 2 tab PRN Q4HRS PRN PO MODERATE- SEVERE PAIN; Start 08/01/18 at 11:45 Prochlorperazine Edisylate (Compazine) 10 mg STK-MED ONCE .ROUTE ; Start at 11:42; Stop 08/01/18 at 11:43; Status DC Fentanyl Citrate (Fentanyl 2ml Vial) 100 mcg STK-MED ONCE .ROUTE ; Start at 11:50; Stop 08/01/18 at 11:51; Status DC Vitals/I & O Vital Sign - Last 24 Hours 07/31/18 07/31/18 07/31/18 07/31/18 16:06 19:00 19:30 23:00 Temp 98.2 98.3 98.2 98.3 Pulse 113 96 80 Resp 20 18 18 B/P (MAP) 139/80 (99) 126/83 (97) 105/65 (78) Pulse Ox 99 98 95 O2 Delivery Room Air Room Air Room Air 08/01/18 08/01/18 08/01/18 08/01/18 03:00 05:04 05:38 07:00 Temp 98.1 98.1 98.1 98.1 Pulse 73 81 Resp 18 16 16 18 B/P (MAP) 111/77 (88) 120/78 (92) Pulse Ox 94 97 O2 Delivery Room Air Room Air Room Air Room Air 08/01/18 08/01/18 08/01/18 08/01/18 08:31 11:35 11:50 11:53 Temp 97.6 98.3 98.3 97.6 98.3 98.3 Pulse 106 102 100 Resp 15 12 16 10 B/P (MAP) 142/81 128/71 128/71 Pulse Ox 97 96 97 96 O2 Delivery Room Air Room Air Nasal Cannula Room Air O2 Flow Rate 2 08/01/18 08/01/18 08/01/18 08/01/18 12:05 12:11 12:20 12:25 Temp 98.3 98.4 98.3 98.4 Pulse 104 108 Resp 18 18 18 B/P (MAP) 130/72 121/71 Pulse Ox 97 97 97 O2 Delivery Nasal Cannula Nasal Cannula Nasal Cannula Nasal Cannula O2 Flow Rate 2 2.0 2 2 08/01/18 08/01/18 08/01/18 08/01/18 12:35 13:06 13:45 14:00 Temp 98.1 98.1 Pulse 105 101 101 Resp 22 17 B/P (MAP) 131/78 (95) 131/84 (100) 114/75 (88) Pulse Ox 96 96 91 91 O2 Delivery Nasal Cannula Nasal Cannula Nasal Cannula O2 Flow Rate 2.0 2.0 2.0 08/01/18 08/01/18 14:15 15:00 Pulse 98 119 B/P (MAP) 121/71 (88) 117/81 (93) Pulse Ox 92 95 O2 Delivery Room Air Nasal Cannula O2 Flow Rate 2.0 Intake and Output 07/31/18 07/31/18 08/01/18 15:00 23:00 07:00 Output Total 700 ml Balance -700 ml ROGERS CONNER MD Aug 01, 2018 15:40
[2018-08-01] MEDS: diphenhydrAMINE HCL 25 MG CAPSULE PO PRN (17:29)
[2018-08-02] MEDS: oxyCODONE/APAP 5/325 1 TAB TABLET PO PRN ×5 (00:38→17:11)
[2018-08-02 03:00] VITALS: BP 117/73
[2018-08-02] MEDS: diphenhydrAMINE HCL 25 MG CAPSULE PO PRN (05:22)
[2018-08-02 05:30] VITALS: BP 136/84
[2018-08-02 07:00] VITALS: BP 117/73
--- NOTE | 2018-08-02 09:07 | PDOC ---
SURGICAL PROGRESS NOTE Subjective did not eat breakfast, a little nausea this AM pain managed ambulated urinated Vital Signs Vital Signs Date Time Temp Pulse Resp B/P (MAP) Pulse Ox O2 Delivery O2 Flow Rate FiO2 08/02/18 07:30 Room Air 08/02/18 07:00 97.7 92 18 117/73 (88) 97 97.7 08/02/18 03:00 2.0 I&O Intake and Output 08/02/18 07:00 Intake Total 1820 ml Output Total 1320 ml Balance 500 ml Intake Oral 320 ml IV Total 1500 ml Output Urine Total 1300 ml Estimated Blood Loss 20 ml # Voids 3 General: Alert, Oriented X3, Cooperative, No acute distress Abdomen: Soft, Other (LI[facility] incision c/d/i, no erythema, minimal swelling) Labs Laboratory Tests Test 07/31/18 12:20 07/31/18 15:20 White Blood Count 5.7 x10^3/uL (4.0-11.0) Red Blood Count 4.81 x10^6/uL (4.30-5.70) Hemoglobin 15.6 g/dL (13.0-17.5) Hematocrit 44.6 % (39.0-53.0) Mean Corpuscular Volume 93 fL (79-100) Mean Corpuscular Hemoglobin 32 pg (25-35) Mean Corpuscular Hemoglobin Concent 35 g/dL (31-37) Red Cell Distribution Width 12.5 % (11.5-14.5) Platelet Count 194 x10^3/uL (140-400) Neutrophils (%) (Auto) 57 % (31-73) Lymphocytes (%) (Auto) 34 % (24-48) Monocytes (%) (Auto) 7 % (0-9) Eosinophils (%) (Auto) 3 % (0-3) Basophils (%) (Auto) 0 % (0-3) Neutrophils # (Auto) 3.3 x10^3uL (1.8-7.7) Lymphocytes # (Auto) 1.9 x10^3/uL (1.0-4.8) Monocytes # (Auto) 0.4 x10^3/uL (0.0-1.1) Eosinophils # (Auto) 0.1 x10^3/uL (0.0-0.7) Basophils # (Auto) 0.0 x10^3/uL (0.0-0.2) Prothrombin Time 12.9 SEC (11.7-14.0) Prothromb Time International Ratio 1.0 (0.8-1.1) D-Dimer (Suyapa) 0.27 ug/mlFEU (0.00-0.50) Sodium Level 141 mmol/L (136-145) Potassium Level 3.9 mmol/L (3.5-5.1) Chloride Level 105 mmol/L (98-107) Carbon Dioxide Level 26 mmol/L (21-32) Anion Gap 10 (6-14) Blood Urea Nitrogen 15 mg/dL (8-26) Creatinine 0.8 mg/dL (0.7-1.3) Estimated GFR (Cockcroft-Gault) 110.0 BUN/Creatinine Ratio 19 (6-20) Glucose Level 107 mg/dL (70-99) Calcium Level 8.9 mg/dL (8.5-10.1) Magnesium Level 1.8 mg/dL (1.8-2.4) Total Bilirubin 0.4 mg/dL (0.2-1.0) Aspartate Amino Transf (AST/SGOT) 17 U/L (15-37) Alanine Aminotransferase (ALT/SGPT) 30 U/L (16-63) Alkaline Phosphatase 74 U/L (46-116) Troponin I Quantitative < 0.017 ng/mL (0.000-0.055) < 0.017 ng/mL (0.000-0.055) Total Protein 7.5 g/dL (6.4-8.2) Albumin 3.8 g/dL (3.4-5.0) Albumin/Globulin Ratio 1.0 (1.0-1.7) Lipase 85 U/L (73-393) Problem List Problems Medical Problems: (1) Chest pain Status: Acute (2) Inguinal hernia Status: Acute Assessment/Plan s/p LI[facility] home if tolerating diet and pain managed ARA FRANK APRN Aug 02, 2018 09:07
[2018-08-02] MEDS ORDERED: ONDA4TAB7 PO (09:08)
[2018-08-02] MEDS ORDERED: OXYC1TAB7 PO (09:08)
[2018-08-02 11:00] VITALS: BP 119/77
[2018-08-02 15:00] VITALS: BP 111/64
--- NOTE | 2018-08-02 19:20 | PDOC3 ---
*Discharge Summary* Date of Admission: Jul 31, 2018 Date of Discharge: Aug 02, 2018 Admitting Diagnosis Groin pain Left inguinal hernia Chest pains Final Diagnosis Groin pain. Noncardiac chest pains. Left inguinal hernia. Repair of left inguinal hernia CONSULTS Surgery Procedures Repair of left inguinal hernia Brief Hospital Course This patient is a 33-year-old gentleman that came in with chest pains that initially were in the lower side of the chest and down into the abdomen. The pain eventually localized to the left groin. The patient's cardiac enzymes were negative and his EKG was normal. He has a known left inguinal hernia that has been getting worse and lately he's been having to have it reduced about twice a day. After he was seen and evaluated in the emergency room and we've ruled out the cardiac issue he was decided to bring the patient in for a surgical evaluation and repair of the hernia. The patient was seen by the surgeon who evaluated the patient and then the patient went to surgery and had the left inguinal hernia repair. Following that the patient initially had lots of problems with nausea vomiting and poor by mouth intake therefore he was continued on IV fluids as well as nausea medications. Today the patient is doing much better and he is being discharged in stable condition after the surgical repair of the left inguinal hernia. The situation and options as well as medications diet activity and follow-up were discussed with the patient prior to discharge. Please see the MRAD for the list of discharge medications. discharged home in stable condition. Home Meds Active Scripts Ondansetron Hcl (ZOFRAN) 4 Mg Tablet, 1 TAB PO Q8HRS PRN for NAUSEA/VOMITING, # 10 TAB 0 Refills Prov:ARA FRANK INTERNET SOURCER 08/02/18 Oxycodone Hcl/Acetaminophen (OXYCODONE-ACETAMINOPHEN 5-325) 1 Each Tablet, 1 TAB PO PRN Q4HRS PRN for MILD PAIN, #30 TAB 0 Refills Prov:ARA FRANK INTERNET SOURCER 08/02/18 Scheduled PRN Ondansetron Hcl (Zofran), 1 TAB PO Q8HRS PRN for NAUSEA/VOMITING Oxycodone Hcl/Acetaminophen (Oxycodone-Acetaminophen 5-325), 1 TAB PO PRN Q4HRS PRN for MILD PAIN Scripts Ondansetron Hcl (ZOFRAN) 4 Mg Tablet 1 TAB PO Q8HRS PRN for NAUSEA/VOMITING, #10 TAB 0 Refills Prov: ARA FRANK INTERNET SOURCER 08/02/18 Oxycodone Hcl/Acetaminophen (OXYCODONE-ACETAMINOPHEN 5-325) 1 Each Tablet 1 TAB PO PRN Q4HRS PRN for MILD PAIN, #30 TAB 0 Refills Prov: ARA FRANK INTERNET SOURCER 08/02/18 Time Spent Total time spent with patient [] minutes for coordination of care, counseling, and education. ROGERS CONNER MD Aug 02, 2018 19:20
--- NOTE | 2018-08-03 13:19 | PATHOLOGY ---
[facility] Accession Number: [id number] . 01 Material submitted: . INGUINAL HERNIA . 01 Clinical history: . Hernia, inguinal . 02 Diagnosis: "Inguinal hernia sac", hernia repair: - Fibroadipose connective tissue with mesothelial-lining consistent with hernia sac. . (CLW:mml; 08/03/18) [facility]/08/03/2018 . 02 Electronically signed: . Giovanna Stephens MD, Pathologist NPI- [id number] . 01 Gross description: . The specimen is received in formalin, labeled "Kvng Catalan, inguinal hernia sac". Received is a segment of fibromembranous tissue measuring 5.9 x 2.5 x 0.9 cm in greatest dimensions. No distinct nodules or lesions are noted grossly. The specimen is submitted representatively in cassette A1. (CAA; 08/02/2018) QAC/QAC . 02 Pathologist provided ICD-10: K40.90 . 02 CPT . 081884 Specimen Comment: A courtesy copy of this report has been sent to Specimen Comment: [phone], , . Specimen Comment: Report sent to ,DR CONNER / DR MORRIS Specimen Comment: A duplicate report has been generated due to demographic updates. Performed at: 01 [facility] [address] [facility] [address], [place] [id number] MD Josiah Hsu MD Phone: [phone] Performed at: 02 [facility] [address] [place], [place] [id number] MD Ventura Farah MD Phone: [phone]
== END 2018-08-02 18:05 | disposition home or self-care (01) | DRG 352 ==
LOC: ER 12:11 → 4 NORTH 16:16
PROVIDERS: ADMIT Internal Medicine Cardiovascular Disease; ATTEND Internal Medicine Cardiovascular Disease
PROC: 0YU60JZ Supplement Left Inguinal Region with Synthetic Substitute, Open Approach (ICD-10-PCS; principal; 2018-07-31)
DX: K40.90 Unilateral inguinal hernia, without obstruction or gangrene, not specified as recurrent (principal); J30.2 Other seasonal allergic rhinitis; R07.89 Other chest pain; Z79.899 Other long term (current) drug therapy; Z88.0 Allergy status to penicillin
CPT/HCPCS: 36415; 71045; 76870; 80053; 83690; 83735; 84484; 85025; 85379; 85610; 88302; 90471; 90756; 93005; C1781; J0780; J1100; J1885; J2250; J2405; J2704; J2710; J3010; J3490; J7120; Q0163; 99285-25; Q2035

== ENCOUNTER 2020-06-06 00:16 | Emergency (ER) | payer BC ==
[~2020-06-06] VITALS: Ht 185.4 cm; Wt 115.0 kg
[~2020-06-06 00:16] MED LIST: ONDA4TAB7 PO; OXYC1TAB7 PO
[2020-06-06 00:58] LABS: BILIRUBIN,URINE NEGATIVE (NEG); CLARITY,URINE CLEAR; COLOR,URINE YELLOW; NITRITE,URINE NEGATIVE (NEG); PH,URINE 5.5 (<5.0-8.0); PROTEIN,URINE NEGATIVE (NEG-TRACE); UROBILINOGEN,URINE 0.2 mg/dL (0.2 mg/dL)
[2020-06-06 01:03] LABS: SQUAMOUS EPITHELIAL CELL,UR OCC /LPF
[2020-06-06 01:04] LABS: BACTERIA,URINE 0 /HPF (0-FEW); RBC,URINE 0 /HPF (0-2); WBC,URINE RARE /HPF (0-4)
--- NOTE | 2020-06-06 01:09 | PHYS DOC ---
Past Medical History Past Medical History: No Pertinent History Additional Past Medical Histor: seasonal allergies Past Surgical History: No Surgical History Smoking Status: Never Smoker Alcohol Use: None Drug Use: None General Adult EDM: Chief Complaint: ABDOMINAL PAIN HPI: HPI: Patient is a 35 year old male presents with a chief complaint of abdominal pain. Patient states pain began 2 hours ago and on the left side abdomen radiating to the right side. Patient states has pain like this in the past with reflux. Patient has nausea but no vomiting or diarrhea. Patient had a mild cough for the last 2 weeks. Patient also describes some tingling in his bilateral lower extremities. Pain is worse with palpation and movement. Review of Systems: Review of Systems: Constitutional: Denies fever or chills. [] Eyes: Denies change in visual acuity. [] HENT: Denies nasal congestion or sore throat. [] Respiratory: Asthma cough but no shortness of breath Cardiovascular: Denies chest pain or edema. [] GI: Complains of abdominal pain and nausea but no vomiting or diarrhea. : Denies dysuria. [] Musculoskeletal: Denies back pain or joint pain. [] Integument: Denies rash. [] Neurologic: Denies headache, but has been tingling in his legs. Endocrine: Denies polyuria or polydipsia. [] Lymphatic: Denies swollen glands. [] Psychiatric: Denies depression or anxiety. [] Heart Score: Risk Factors: Risk Factors: DM, Current or recent (<one month) smoker, HTN, HLP, family history of CAD, obesity. Risk Scores: Score 0 - 3: 2.5% MACE over next 6 weeks - Discharge Home Score 4 - 6: 20.3% MACE over next 6 weeks - Admit for Clinical Observation Score 7 - 10: 72.7% MACE over next 6 weeks - Early Invasive Strategies Current Medications: Current Medications Medications (Trade) Dose Ordered Sig/Shiva Start Time Stop Time Status Last Admin Dose Admin Dicyclomine HCl (Bentyl) 20 mg 1X ONCE 06/06/20 01:30 06/06/20 01:31 Ondansetron HCl (Zofran) 4 mg 1X ONCE 06/06/20 01:30 06/06/20 01:31 Pantoprazole Sodium (PROTONIX VIAL for IV PUSH) 40 mg 1X ONCE 06/06/20 01:30 06/06/20 01:31 Sodium Chloride 1,000 ml @ 1,000 mls/hr 1X ONCE 06/06/20 01:30 06/06/20 02:29 Allergies: Allergies: Allergies Coded Allergies Type Severity Reaction Last Updated Verified penicillin Allergy Severe SOB 05/13/15 Yes Penicillins Allergy Intermediate 11/02/15 Yes Physical Exam: PE: Constitutional: Well developed, well nourished, no acute distress, non-toxic appearance. [] HENT: Normocephalic, atraumatic, bilateral external ears normal, no trismus nose normal. [] Eyes: PERRLA, EOMI, conjunctiva normal, no discharge. [] Neck: Normal range of motion, no tenderness, supple, no stridor. [] Cardiovascular:Heart rate regular rhythm, dorsalis pedis pulse 2+ bilateral extremities, cap refill brisk Lungs & Thorax: Bilateral breath sounds clear, no respiratory distress Abdomen: Abdomen soft with mild left-sided abdominal tenderness in epigastric area no guarding or rebound no pulsatile masses Skin: Warm, dry, no erythema, no rash. [] Back: No tenderness, no CVA tenderness. [] Extremities: No tenderness, no cyanosis, no clubbing, ROM intact, no edema. [] Neurologic: Alert and oriented X 3, normal motor function, normal sensory function, no focal deficits noted. [] Psychologic: Affect normal, judgement normal, mood normal. [] Current Patient Data: Labs: Laboratory Tests Test 06/06/20 00:18 06/06/20 00:59 Urine Collection Type Unknown Urine Color Yellow Urine Clarity Clear Urine pH 5.5 Urine Specific [place] 1.025 Urine Protein Negative mg/dL Urine Glucose (UA) Negative mg/dL Urine Ketones (Stick) Negative mg/dL Urine Blood Negative Urine Nitrite Negative Urine Bilirubin Negative Urine Urobilinogen Dipstick 0.2 mg/dL Urine Leukocyte Esterase Negative Urine RBC 0 /HPF Urine WBC Rare /HPF Urine Squamous Epithelial Cells Occ /LPF Urine Bacteria 0 /HPF Urine Mucus Mod /LPF White Blood Count 7.5 x10^3/uL Red Blood Count 4.88 x10^6/uL Hemoglobin 15.6 g/dL Hematocrit 45.0 % Mean Corpuscular Volume 92 fL Mean Corpuscular Hemoglobin 32 pg Mean Corpuscular Hemoglobin Concent 35 g/dL Red Cell Distribution Width 12.8 % Platelet Count 216 x10^3/uL Neutrophils (%) (Auto) 60 % Lymphocytes (%) (Auto) 32 % Monocytes (%) (Auto) 7 % Eosinophils (%) (Auto) 1 % Basophils (%) (Auto) 1 % Neutrophils # (Auto) 4.5 x10^3/uL Lymphocytes # (Auto) 2.4 x10^3/uL Monocytes # (Auto) 0.5 x10^3/uL Eosinophils # (Auto) 0.1 x10^3/uL Basophils # (Auto) 0.0 x10^3/uL Sodium Level 142 mmol/L Potassium Level 3.6 mmol/L Chloride Level 107 mmol/L Carbon Dioxide Level 26 mmol/L Anion Gap 9 Blood Urea Nitrogen 14 mg/dL Creatinine 0.9 mg/dL Estimated GFR (Cockcroft-Gault) 95.0 BUN/Creatinine Ratio 16 Glucose Level 109 mg/dL Calcium Level 9.0 mg/dL Total Bilirubin 0.2 mg/dL Aspartate Amino Transf (AST/SGOT) 23 U/L Alanine Aminotransferase (ALT/SGPT) 48 U/L Alkaline Phosphatase 78 U/L Total Protein 7.3 g/dL Albumin 3.7 g/dL Albumin/Globulin Ratio 1.0 Lipase 112 U/L Current Medications Medications (Trade) Dose Ordered Sig/Shiva Route PRN Reason Start Time Stop Time Status Last Admin Dose Admin Sodium Chloride 1,000 ml @ 1,000 mls/hr Q1H IV 06/06/20 01:30 06/06/20 02:29 DC 06/06/20 01:46 Ondansetron HCl (Zofran) 4 mg 1X ONCE IVP 06/06/20 01:30 06/06/20 01:31 DC 06/06/20 01:46 Dicyclomine HCl (Bentyl) 20 mg 1X ONCE IM 06/06/20 01:30 06/06/20 01:31 DC 06/06/20 01:46 Pantoprazole Sodium (PROTONIX VIAL for IV PUSH) 40 mg 1X ONCE IVP 06/06/20 01:30 06/06/20 01:31 DC 06/06/20 01:46 Sodium Chloride 1,000 ml @ 1,000 mls/hr 1X ONCE IV 06/06/20 01:30 06/06/20 02:29 DC 06/06/20 03:24 Iohexol (Omnipaque 300 Mg/ml) 75 ml 1X ONCE IV 06/06/20 03:30 06/06/20 03:31 DC Info (CONTRAST GIVEN -- Rx MONITORING) 1 each PRN DAILY PRN MC SEE COMMENTS 06/06/20 03:00 06/08/20 02:59 Morphine Sulfate (Morphine Sulfate) 4 mg 1X ONCE IV 06/06/20 03:30 06/06/20 03:31 DC 06/06/20 03:24 Laboratory Tests Test 06/06/20 00:18 Urine Collection Type Unknown Urine Color Yellow Urine Clarity Clear Urine pH 5.5 (<5.0-8.0) Urine Specific [place] 1.025 (1.000-1.030) Urine Protein Negative mg/dL (NEG-TRACE) Urine Glucose (UA) Negative mg/dL (NEG) Urine Ketones (Stick) Negative mg/dL (NEG) Urine Blood Negative (NEG) Urine Nitrite Negative (NEG) Urine Bilirubin Negative (NEG) Urine Urobilinogen Dipstick 0.2 mg/dL (0.2 mg/dL) Urine Leukocyte Esterase Negative (NEG) Urine RBC 0 /HPF (0-2) Urine WBC Rare /HPF (0-4) Urine Squamous Epithelial Cells Occ /LPF Urine Bacteria 0 /HPF (0-FEW) Urine Mucus Mod /LPF Vital Signs: Vital Signs Date Time Temp Pulse Resp B/P (MAP) Pulse Ox O2 Delivery O2 Flow Rate FiO2 06/06/20 03:56 101 136/77 (96) 98 Room Air 06/06/20 03:26 106 138/69 (92) 99 Room Air 06/06/20 03:24 18 98 Room Air 06/06/20 03:22 107 143/73 (96) 98 Room Air 06/06/20 02:47 99 133/82 (99) 98 Room Air 06/06/20 02:17 96 134/81 (98) 98 Room Air 06/06/20 01:47 100 134/84 (101) 97 Room Air 06/06/20 01:17 104 134/82 (99) 98 Room Air 06/06/20 00:47 112 163/90 (114) 98 Room Air 06/06/20 00:20 98.1 113 18 131/101 (111) 97 Room Air 98.1 EKG: EKG: [] Radiology/Procedures: Radiology/Procedures: [][facility] [address] [place] [address] IMAGING REPORT Signed PATIENT: KVNG HALEY ACCOUNT: [id number] : 1985 LOCATION: ER AGE: 35 SEX: M EXAM STATUS: REG ER ORD. PHYSICIAN: LARRY SANCHEZ MD REASON: LEFT ABD PAIN, OMNI 300, 75 ML IV PROCEDURE: CT ABD PELV W/ IV CONTRST ONLY PQRS Compliance Statement: One or more of the following individualized dose reduction techniques were utilized for this examination: 1. Automated exposure control 2. Adjustment of the mA and/or kV according to patient size 3. Use of iterative reconstruction technique CT ABD PELV W/ IV CONTRST ONLY Clinical Indication: Reason: LEFT ABD PAIN, Comparison: None. Technique: Helical CT imaging of the abdomen and pelvis is performed after 75 cc of Omnipaque 300 IV contrast. Oral contrast not administered. Findings: Lung bases essentially clear. Cardiac size normal. The liver, gallbladder, pancreas, dominant aorta, and adrenal glands are normal. Calcified granuloma in the spleen. Kidneys enhance symmetrically. Small left renal cyst does not require follow-up. There is no hydronephrosis. The stomach is unremarkable. Small fat-containing umbilical hernia. There is no dilated small bowel. The appendix is normal. There is no colon wall thickening. The descending and sigmoid colon are decompressed, limiting evaluation. There are a couple of diverticula of the sigmoid colon. There is no abdominal adenopathy or free fluid. Small soft tissue density near the left deep inguinal ring is probably sequela of prior hernia surgery. Urinary bladder is normal. Prostate and seminal vesicles are normal. Tiny calcification in the prostate. There is no pelvic free fluid. No acute bone abnormality. IMPRESSION: 1. No acute abdominal or pelvic abnormality. 2. Minimal sigmoid colon diverticulosis. Electronically signed by: Kvng Phillips MD (06/06/2020 3:52 AM) [facility] DICTATED and SIGNED BY: KVNG PHILLIPS MD DATE: 06/06/20 0352 Course & Med Decision Making: Course & Med Decision Making Patient reassessed at 2:21 AM. Patient with mild left-sided abdominal tenderness radiating to the groin right now. Labs are reassuring will order CT to rule out diverticulitis Patient reassessed at 4 AM. Patient feels much better pain is down to a 3. Work-up is unremarkable. Patient stable for discharge outpatient follow-up return precautions given. Pertinent Labs and Imaging studies reviewed. (See chart for details) [] Gigion Disclaimer: Dragon Disclaimer: This electronic medical record was generated, in whole or in part, using a voice recognition dictation system. Departure Departure Impression: Primary Impression: Abdominal pain Disposition: 01 HOME, SELF-CARE Condition: STABLE Referrals: SORIN GARZON MD (PCP) 2-3 DAYS Patient Instructions: Abdominal Pain Additional Instructions: EMERGENCY DEPARTMENT GENERAL DISCHARGE INSTRUCTIONS THANK YOU for coming to [facility] Emergency Department (ED) today and trusting us with your care. We trust that you had a positive experience in our Emergency Department. If you wish to speak to the department Management you can contact the operations officer trust department at . YOUR FOLLOW UP INSTRUCTIONS ARE FOLLOWS: Do you have a private doctor? If you do not have a private doctor, please ask for a resource list of physicians or clinics that may be able to assist you with follow up care. The Emergency Physician has interpreted your x-rays. The X-ray specialist will also review them. If there is a change in the findings you will be notified in 48 hours when at all possible. A lab test or lab culture may have been done, your results will be reviewed and you will be notified if you need a change in treatment. ADDITIONAL INSTRUCTIONS AND INFORMATION Your care today has been supervised by a physician who is specially trained in emergency care. Many problems require more than one evaluation for a complete diagnosis and treatment. We recommend that you schedule your follow up appointment as recommended to ensure complete treatment of your illness or injury. If you are unable to obtain follow up care and continue to have a problem, or if your condition worsens we recommend that you return to the ED. We are not able to safely determine your condition over the phone nor are we able to give sound medical advice over the phone. For these safety reasons, if you call for medical advice we will ask you to come to the ED for further evaluation If you have any questions regarding these discharge instructions please call the ED at . SAFETY INFORMATION In the interest of safety, wellness, and injury prevention; we encourage you to wear your seatbelt, if you smoke; quit smoking, and we encourage your family to use protective helmet for bicycling and other sporting events that present an increased risk for head injury. IF YOUR SYMPTOMS WORSEN OR NEW SYMPTOMS DEVELOP, OR YOU HAVE CONCERNS ABOUT YOUR CONDITION; OR IF YOUR CONDITION WORSENS WHILE YOU ARE WAITING FOR YOUR FOLLOW UP APPOINTMENT; EITHER CONTACT YOUR PRIMARY CARE DOCTOR, THE PHYSICIAN WHOSE NAME AND NUMBER YOU WERE GIVEN, OR RETURN TO THE ED IMMEDIATELY. Scripts Ondansetron Hcl (ZOFRAN) 4 Mg Tablet 1 TAB PO PRN Q6-8HRS PRN for NAUSEA, #12 TAB Prov: LARRY SANCHEZ MD 06/06/20 Esomeprazole Magnesium (NEXIUM CAPSULE) 40 Mg Capsule.dr 1 CAP PO DAILY, #15 CAP 5 Refills Prov: LARRY SANCHEZ MD 06/06/20 Hyoscyamine Sulfate (LEVSIN) 0.125 Mg Tablet 0.125 MG PO Q4-6HRS PRN for PAIN, #15 TAB Prov: LARRY SANCHEZ MD 06/06/20 Justicifation of Admission Dx: Justifications for Admission: Justification of Admission Dx: N/A LARRY SANCHEZ MD Jun 06, 2020 01:09
[2020-06-06 01:12] LABS: BASO % 1 % (0-3); EOS # 0.1 x10^3/uL (0.0-0.7); EOS % 1 % (0-3); HEMOGLOBIN 15.6 g/dL (13.0-17.5); LYMPH # 2.4 x10^3/uL (1.0-4.8); LYMPH % 32 % (24-48); MEAN CORPUSCULAR HEMOGLOBIN 32 pg (25-35); MEAN CORPUSCULAR HGB CONC 35 g/dL (31-37); MEAN CORPUSCULAR VOLUME 92 fL (79-100); MONO # 0.5 x10^3/uL (0.0-1.1); MONO % 7 % (0-9); NEUT # 4.5 x10^3/uL (1.8-7.7); NEUT % 60 % (31-73); PLATELET COUNT 216 x10^3/uL (140-400); RED BLOOD COUNT 4.88 x10^6/uL (4.30-5.70); RED CELL DISTRIBUTION WIDTH 12.8 % (11.5-14.5); WHITE BLOOD COUNT 7.5 x10^3/uL (4.0-11.0)
[2020-06-06 01:18] LABS: CREATININE 0.9 mg/dL (0.7-1.3); POTASSIUM 3.6 mmol/L (3.5-5.1)
[2020-06-06 01:23] LABS: ALBUMIN 3.7 g/dL (3.4-5.0); TOTAL BILIRUBIN 0.2 mg/dL (0.2-1.0); TOTAL PROTEIN 7.3 g/dL (6.4-8.2)
[2020-06-06] MEDS ORDERED: DICYCLOMINE 20 MG/2 ML VIAL. IM ONE (01:30)
[2020-06-06] MEDS ORDERED: PANTOPRAZOLE IV PUSH 40 MG VIAL. IVP ONE (01:30)
[2020-06-06] MEDS ORDERED: IV NORMAL SALINE 1000ML BAG 1,000 ML IV SCH (01:30)
[2020-06-06] MEDS ORDERED: IV NORMAL SALINE 1000ML BAG 1,000 ML IV ONE (01:30)
[2020-06-06] MEDS ORDERED: ONDANSETRON PF 4 MG/2 ML VIAL. IVP ONE (01:30)
[2020-06-06] MEDS ORDERED: CONTRAST GIVEN. MC PRN (03:00)
[2020-06-06] MEDS ORDERED: IOHEXOL 300 MG/ML 100ML VIAL. IV ONE (03:30)
[2020-06-06] MEDS ORDERED: MORPHINE SULFATE 4 MG/ML VIAL. IV ONE (03:30)
--- NOTE | 2020-06-06 03:55 | RAD ---
PQRS Compliance Statement: One or more of the following individualized dose reduction techniques were utilized for this examination: 1. Automated exposure control 2. Adjustment of the mA and/or kV according to patient size 3. Use of iterative reconstruction technique CT ABD PELV W/ IV CONTRST ONLY Clinical Indication: Reason: LEFT ABD PAIN, Comparison: None. Technique: Helical CT imaging of the abdomen and pelvis is performed after 75 cc of Omnipaque 300 IV contrast. Oral contrast not administered. Findings: Lung bases essentially clear. Cardiac size normal. The liver, gallbladder, pancreas, dominant aorta, and adrenal glands are normal. Calcified granuloma in the spleen. Kidneys enhance symmetrically. Small left renal cyst does not require follow-up. There is no hydronephrosis. The stomach is unremarkable. Small fat-containing umbilical hernia. There is no dilated small bowel. The appendix is normal. There is no colon wall thickening. The descending and sigmoid colon are decompressed, limiting evaluation. There are a couple of diverticula of the sigmoid colon. There is no abdominal adenopathy or free fluid. Small soft tissue density near the left deep inguinal ring is probably sequela of prior hernia surgery. Urinary bladder is normal. Prostate and seminal vesicles are normal. Tiny calcification in the prostate. There is no pelvic free fluid. No acute bone abnormality. IMPRESSION: 1. No acute abdominal or pelvic abnormality. 2. Minimal sigmoid colon diverticulosis. Electronically signed by: Kvng Phillips MD (06/06/2020 3:52 AM) [facility]
[2020-06-06 03:56] VITALS: BP 136/77
[2020-06-06] MEDS ORDERED: ONDA4TAB7 PO (04:09)
[2020-06-06] MEDS ORDERED: ESOM40CA PO (04:09)
[2020-06-06] MEDS ORDERED: HYOS0.1264 PO (04:09)
== END 2020-06-06 04:34 ==
LOC: ER 00:16
DX: R10.13 Epigastric pain (principal); K57.30 Diverticulosis of large intestine without perforation or abscess without bleeding; R05 Cough; Z88.0 Allergy status to penicillin
CPT/HCPCS: 36415; 74177; 80053; 81001; 83690; 85025; 96361; 96372; 96374; 96375; 99285; C9113; J0500; J2270; J2405; J7030

== ENCOUNTER 2021-04-20 05:43 | Emergency (ER) | payer BC ==
[~2021-04-20] VITALS: Ht 185.4 cm; Wt 118.3 kg
[~2021-04-20 05:43] MED LIST changes: +ESOM40CA PO; +HYOS0.1264 PO
--- NOTE | 2021-04-20 08:13 | PHYS DOC ---
Past Medical History Past Medical History: No Pertinent History Additional Past Medical Histor: seasonal allergies Past Surgical History: No Surgical History Smoking Status: Never Smoker Alcohol Use: None Drug Use: None General Adult EDM: Chief Complaint: ABDOMINAL PAIN HPI: HPI: Patient is a 36 year old male who present to ER for evaluation abdominal pain with nausea vomiting and diarrhea , BLOOD IN URINEt. Symptoms started 4-hourS ago. Patient said the pain is severe in nature. Patient is not on any blood thinner. Patient states he had the same episode a few years back and was told that he had diverticulosis. Patient does have family history of kidney stone Review of Systems: Review of Systems: Constitutional: Denies fever or chills. [] Eyes: Denies change in visual acuity. [] HENT: Denies nasal congestion or sore throat. [] Respiratory: Denies cough or shortness of breath. [] Cardiovascular: Denies chest pain or edema. [] GI: Positive for abdominal pain with nausea vomiting : Denies dysuria, POSITIVE FOR BLOOD IN URINE Musculoskeletal: Denies back pain or joint pain. [] Integument: Denies rash. [] Neurologic: Denies headache, focal weakness or sensory changes. [] Endocrine: Denies polyuria or polydipsia. [] Lymphatic: Denies swollen glands. [] Psychiatric: Denies depression or anxiety. [] Heart Score: C/O Chest Pain: N/A Risk Factors: Risk Factors: DM, Current or recent (<one month) smoker, HTN, HLP, family history of CAD, obesity. Risk Scores: Score 0 - 3: 2.5% MACE over next 6 weeks - Discharge Home Score 4 - 6: 20.3% MACE over next 6 weeks - Admit for Clinical Observation Score 7 - 10: 72.7% MACE over next 6 weeks - Early Invasive Strategies Allergies: Allergies: Allergies Coded Allergies Type Severity Reaction Last Updated Verified penicillin Allergy Severe SOB 05/13/15 Yes Penicillins Allergy Intermediate 11/02/15 Yes Physical Exam: PE: Constitutional: Well developed, well nourished, no acute distress, non-toxic appearance. [] HENT: Normocephalic, atraumatic, bilateral external ears normal, oropharynx moist, no oral exudates, nose normal. [] Eyes: PERRLA, EOMI, conjunctiva normal, no discharge. [] Neck: Normal range of motion, no tenderness, supple, no stridor. [] Cardiovascular:Heart rate regular rhythm, no murmur [] Lungs & Thorax: Bilateral breath sounds clear to auscultation [] Abdomen: Bowel sounds normal, soft, there is tenderness to palpation in left lower abdominal area. no masses, no pulsatile masses. [] Skin: Warm, dry, no erythema, no rash. [] Back: No tenderness, no CVA tenderness. [] Extremities: No tenderness, no cyanosis, no clubbing, ROM intact, no edema. [] Neurologic: Alert and oriented X 3, normal motor function, normal sensory function, no focal deficits noted. [] Psychologic: Affect normal, judgement normal, mood normal. [] Current Patient Data: Labs: Laboratory Tests Test 04/20/21 08:20 04/20/21 08:28 Urine Collection Type Unknown Urine Color Yellow Urine Clarity Clear Urine pH 5.5 Urine Specific [place] >=1.030 Urine Protein Negative mg/dL Urine Glucose (UA) Negative mg/dL Urine Ketones (Stick) Negative mg/dL Urine Blood Moderate Urine Nitrite Negative Urine Bilirubin Negative Urine Urobilinogen Dipstick 0.2 mg/dL Urine Leukocyte Esterase Negative Urine RBC 1-2 /HPF Urine WBC 0 /HPF Urine Bacteria 0 /HPF Urine Mucus Mod /LPF White Blood Count 10.4 x10^3/uL Red Blood Count 4.56 x10^6/uL Hemoglobin 14.7 g/dL Hematocrit 43.0 % Mean Corpuscular Volume 94 fL Mean Corpuscular Hemoglobin 32 pg Mean Corpuscular Hemoglobin Concent 34 g/dL Red Cell Distribution Width 12.5 % Platelet Count 213 x10^3/uL Neutrophils (%) (Auto) 86 % Lymphocytes (%) (Auto) 10 % Monocytes (%) (Auto) 4 % Eosinophils (%) (Auto) 0 % Basophils (%) (Auto) 0 % Neutrophils # (Auto) 9.0 x10^3/uL Lymphocytes # (Auto) 1.0 x10^3/uL Monocytes # (Auto) 0.4 x10^3/uL Eosinophils # (Auto) 0.0 x10^3/uL Basophils # (Auto) 0.0 x10^3/uL Segmented Neutrophils % 85 % Lymphocytes % 11 % Monocytes % 4 % Platelet Estimate Adequate Sodium Level 143 mmol/L Potassium Level 3.8 mmol/L Chloride Level 108 mmol/L Carbon Dioxide Level 23 mmol/L Anion Gap 12 Blood Urea Nitrogen 16 mg/dL Creatinine 1.2 mg/dL Estimated GFR (Cockcroft-Gault) 67.8 BUN/Creatinine Ratio 13 Glucose Level 124 mg/dL Calcium Level 9.6 mg/dL Magnesium Level 2.1 mg/dL Total Bilirubin 0.3 mg/dL Aspartate Amino Transf (AST/SGOT) 25 U/L Alanine Aminotransferase (ALT/SGPT) 40 U/L Alkaline Phosphatase 77 U/L Troponin I Quantitative < 0.017 ng/mL Total Protein 7.2 g/dL Albumin 3.7 g/dL Albumin/Globulin Ratio 1.1 Lipase 67 U/L Current Medications Medications (Trade) Dose Ordered Sig/Shiva Route PRN Reason Start Time Stop Time Status Last Admin Dose Admin Morphine Sulfate (Morphine Sulfate) 4 mg 1X ONCE IVP 04/20/21 08:15 04/20/21 08:16 DC 04/20/21 08:46 Ondansetron HCl (Zofran) 4 mg 1X ONCE IVP 04/20/21 08:15 04/20/21 08:16 DC 04/20/21 08:45 Iohexol (Omnipaque 300 Mg/ml) 75 ml 1X ONCE IV 04/20/21 09:15 04/20/21 09:16 DC 04/20/21 09:15 Info (CONTRAST GIVEN -- Rx MONITORING) 1 each PRN DAILY PRN MC SEE COMMENTS 04/20/21 09:15 04/22/21 09:14 Morphine Sulfate (Morphine Sulfate) 4 mg 1X ONCE IVP 04/20/21 10:30 04/20/21 10:34 DC 04/20/21 10:42 Ketorolac Tromethamine (Toradol 30mg Vial) 30 mg 1X ONCE IVP 04/20/21 11:30 04/20/21 11:31 DC 04/20/21 11:22 EKG: EKG: [] Radiology/Procedures: Radiology/Procedures: [][facility] [address] [place] [address] IMAGING REPORT Signed PATIENT: SHELBY HALEY ACCOUNT: [id number] : 1985 LOCATION: ER AGE: 36 SEX: M EXAM STATUS: REG ER ORD. PHYSICIAN: LANE GONGORA DO REASON: abdominal pain, nausea, vomiting PROCEDURE: CT ABD PELV W/ IV CONTRST ONLY Exam: CT abdomen/pelvis with intravenous contrast Indication: Abdominal pain, nausea and vomiting Comparison: CT abdomen pelvis 06/06/2020 Technique: Helical CT imaging performed of the abdomen and pelvis after the intravenous administration of 75 mL Omnipaque 300 contrast. Sagittal and coronal reformats were obtained. One or more of the following individualized dose reduction techniques were utilized for this examination: 1. Automated exposure control 2. Adjustment of the mA and/or kV according to patient size 3. Use of iterative reconstruction technique. Findings: Lower chest: The lung bases are clear. The heart is normal in size. Liver: The liver is normal in size. No focal lesion. Gallbladder/Biliary Tree: Normal. Pancreas: Normal. Spleen: Normal. Adrenal Glands: Normal. Kidneys/Ureters/Bladder: Kidneys are normal size. There is a delayed nephrogram on the left. There is mild left hydronephrosis due to two 2 mm calculi at the left ureterovesicular junction (image 88 series 2 and 41 series 4). Mild left perinephric and periureteral fat stranding. The right kidney and ureter are normal. Bladder is mostly decompressed. Reproductive Organs: Prostate gland is normal. Stomach, small bowel, and colon: Stomach is normal. There is no small bowel obstruction. The colon and appendix are normal. Vasculature: Abdominal aorta is normal in caliber. Lymph Nodes: There is no lymphadenopathy. Peritoneum and retroperitoneum: No free fluid or free air. Bones: No acute osseous abnormality. Impression: Mild left hydronephrosis due to two 2 mm calculi at the left ureterovesicular junction. Electronically signed by: Avis Gustafson MD (04/20/2021 10:41 AM) [id number] DICTATED and SIGNED BY: AVIS GUSTAFSON MD DATE: 04/20/21 [id number] 0 Course & Med Decision Making: Course & Med Decision Making Pertinent Labs and Imaging studies reviewed. (See chart for details) Patient is a 36-year-old male who present to ER due to left abdominal pain with hematuria. CT scan show 2 small ureteral stones at the ureterovesicular junction. Patient was given pain medication in the ED, he feel much better. Patient will be discharged home, he will need to follow-up with a urologist for outpatient evaluation and treatment. Patient was amenable to plan of care. Alphonso Disclaimer: Alphonso Disclaimer: This electronic medical record was generated, in whole or in part, using a voice recognition dictation system. Departure Departure Impression: Primary Impression: Kidney stone on left side Disposition: HOME / SELF CARE / HOMELESS Condition: IMPROVED Referrals: SORIN GARZON MD (PCP) Patient Instructions: Kidney Stones Additional Instructions: Please call UROLOGY FOR FOLLOW UP IN 2 DAYS. [facility] / [place], [place] [address] [place], [place] [id number] [place] [id number] [place] [address] [place] [address] [facility], [address] [place] [address] Scripts Hydrocodone Bit/Acetaminophen (HYDROCODONE-APAP 7.5-325 ) 1 Tab Tablet 1 TAB PO PRN Q6HRS PRN for PAIN, #15 TAB 0 Refills Prov: LANE GONGORA DO 04/20/21 Ondansetron Hcl (ZOFRAN) 4 Mg Tablet 1 TAB PO Q6HRS PRN for NAUSEA, #20 TAB Prov: LANE GONGORA DO 04/20/21 Tamsulosin Hcl (FLOMAX) 0.4 Mg Cap.er.24h 1 CAP PO DAILY for 14 Days, #14 CAP 11 Refills Prov: LANE GONGORA DO 04/20/21 Naproxen Sodium (ANAPROX DS) 550 Mg Tablet 1 TAB PO BID PRN for PAIN for 15 Days, #30 TAB 0 Refills Prov: LANE GONGORA DO 04/20/[address] GONGORA DO Apr 20, 2021 08:13
[2021-04-20] MEDS ORDERED: ONDANSETRON PF 4 MG/2 ML VIAL. IVP ONE (08:15)
[2021-04-20] MEDS ORDERED: MORPHINE SULFATE 4 MG/ML INJ. IVP ONE ×2 (08:15→10:30)
[2021-04-20 08:40] LABS: BILIRUBIN,URINE NEGATIVE (NEG); CLARITY,URINE CLEAR; COLOR,URINE YELLOW; NITRITE,URINE NEGATIVE (NEG); PH,URINE 5.5 (<5.0-8.0); PROTEIN,URINE NEGATIVE (NEG-TRACE); UROBILINOGEN,URINE 0.2 mg/dL (0.2 mg/dL)
[2021-04-20 08:42] LABS: BASO % 0 % (0-3); EOS % 0 % (0-3); HEMOGLOBIN 14.7 g/dL (13.0-17.5); LYMPH % 10 % (24-48); MEAN CORPUSCULAR HEMOGLOBIN 32 pg (25-35); MEAN CORPUSCULAR HGB CONC 34 g/dL (31-37); MEAN CORPUSCULAR VOLUME 94 fL (79-100); MONO # 0.4 x10^3/uL (0.0-1.1); MONO % 4 % (0-9); NEUT % 86 % (31-73); PLATELET COUNT 213 x10^3/uL (140-400); RED BLOOD COUNT 4.56 x10^6/uL (4.30-5.70); RED CELL DISTRIBUTION WIDTH 12.5 % (11.5-14.5); WHITE BLOOD COUNT 10.4 x10^3/uL (4.0-11.0)
[2021-04-20 08:58] LABS: BACTERIA,URINE 0 /HPF (0-FEW); WBC,URINE 0 /HPF (0-4)
[2021-04-20 09:06] LABS: ALBUMIN 3.7 g/dL (3.4-5.0); ALBUMIN/GLOBULIN RATIO 1.1 (1.0-1.7); CALCIUM 9.6 mg/dL (8.5-10.1); CREATININE 1.2 mg/dL (0.7-1.3); GFR 67.8; MAGNESIUM 2.1 mg/dL (1.8-2.4); TOTAL BILIRUBIN 0.3 mg/dL (0.2-1.0); TOTAL PROTEIN 7.2 g/dL (6.4-8.2)
[2021-04-20] MEDS ORDERED: IOHEXOL 300 MG/ML 100ML VIAL. IV ONE (09:15)
[2021-04-20] MEDS ORDERED: CONTRAST GIVEN. MC PRN (09:15)
[2021-04-20 09:16] LABS: POTASSIUM 3.8 mmol/L (3.5-5.1)
--- NOTE | 2021-04-20 10:43 | RAD ---
Exam: CT abdomen/pelvis with intravenous contrast Indication: Abdominal pain, nausea and vomiting Comparison: CT abdomen pelvis 06/06/2020 Technique: Helical CT imaging performed of the abdomen and pelvis after the intravenous administratio n of 75 mL Omnipaque 300 contrast. Sagittal and coronal reformats were obtained. One or more of the following individualized dose reduction techniques were utilized for this examinat ion: 1. Automated exposure control 2. Adjustment of the mA and/or kV according to patient size 3. Use of iterative reconstruction technique. Findings: Lower chest: The lung bases are clear. The heart is normal in size. Liver: The liver is normal in size. No focal lesion. Gallbladder/Biliary Tree: Normal. Pancreas: Normal. Spleen: Normal. Adrenal Glands: Normal. Kidneys/Ureters/Bladder: Kidneys are normal size. There is a delayed nephrogram on the left. There is mild left hydronephrosis due to two 2 mm calculi at the left ureterovesicular junction (image 88 se ashley 2 and 41 series 4). Mild left perinephric and periureteral fat stranding. The right kidney and u reter are normal. Bladder is mostly decompressed. Reproductive Organs: Prostate gland is normal. Stomach, small bowel, and colon: Stomach is normal. There is no small bowel obstruction. The colon an d appendix are normal. Vasculature: Abdominal aorta is normal in caliber. Lymph Nodes: There is no lymphadenopathy. Peritoneum and retroperitoneum: No free fluid or free air. Bones: No acute osseous abnormality. Impression: Mild left hydronephrosis due to two 2 mm calculi at the left ureterovesicular junction. Electronically signed by: Avis Gustafson MD (04/20/2021 10:41 AM) [id number]
[2021-04-20 10:49] LABS: % LYMPHS 11 % (24-48); % MONOS 4 % (0-10); % SEGS 85 % (35-66); PLT ESTIMATE ADEQUATE (ADEQUATE)
[2021-04-20] MEDS ORDERED: KETOROLAC 30 MG/ML VIAL. IVP ONE (11:30)
[2021-04-20] MEDS ORDERED: ONDA4TAB7 PO (11:45)
[2021-04-20] MEDS ORDERED: NAPR-682 PO (11:45)
[2021-04-20] MEDS ORDERED: TAMS0.4C97 PO (11:45)
[2021-04-20] MEDS ORDERED: HYDR-2761 PO (11:45)
[2021-04-20 12:02] VITALS: BP 137/75
[2021-04-20] MEDS ORDERED: HYDR-2765 PO (13:07)
--- NOTE | 2021-04-20 17:27 | EKG ---
[facility] [address] [place] [address] Test Date: 2021-04-20 Test Time: 08:05:34 Pat Name: SHELBY HALEY Department: Room: Gender: M [employer] L[employer]: : 1985 Requested By: LANE GONGORA Order Number: [id number] Reading MD: Measurements Intervals [place] Rate: 90 P: 39 DE: 140 QRS: 14 QRSD: 90 T: 29 QT: 338 QTc: 417 Interpretive Statements SINUS RHYTHM NORMAL ECG RI6.02 No previous ECG available for comparison
== END 2021-04-20 12:27 | disposition home or self-care (01) ==
LOC: ER 05:43
DX: N20.0 Calculus of kidney (principal); Z88.0 Allergy status to penicillin
CPT/HCPCS: 36415; 74177; 80053; 81001; 83690; 83735; 84484; 85007; 85025; 93005; 96374; 96375; 96376; 99285; J1885; J2270; J2405; Q9967